=== PATIENT | male | born 1950 | race American Indian/Alaskan Native ===

== ENCOUNTER 2016-08-14 10:09 | Emergency (ER) | payer MEDICARE ==
[2016-08-14 10:58] LABS: Basophils % (Auto) 0.4 % (0.0-1.8); Eosinophils % (Auto) 1.9 % (0.0-4.3); Hematocrit 40.9 % (35.5-45.6); Hemoglobin 13.3 gm/dl (11.8-15.2); Mean Corpuscular HGB Conc 33 % (32-34); Mean Corpuscular Volume 75 fl (84-94); Platelet Count 242 K/mm3 (140-440); Red Blood Count 5.45 M/mm3 (3.65-5.03); Red Cell Distribution Width 13.4 % (13.2-15.2); White Blood Count 10.2 K/mm3 (4.5-11.0)
[2016-08-14 11:03] LABS: Mean Corpuscular Hemoglobin 25 pg (28-32)
[2016-08-14 11:07] LABS: INR 0.97 (0.87-1.13)
[2016-08-14 13:18] LABS: Alanine Aminotransferase 14 units/L (7-56); Albumin 4.4 g/dL (3.9-5); Albumin/Globulin Ratio 1.5 %; Alkaline Phosphatase 97 units/L (35-129); Anion Gap 20 mmol/L; BUN/Creatinine Ratio 12.85; Bilirubin,Total 0.5 mg/dL (0.1-1.2); Blood Urea Nitrogen 18 mg/dL (9-20); Calcium 9.5 mg/dL (8.4-10.2); Carbon Dioxide 22 mmol/L (22-30); Chloride 105.8 mmol/L (98-107); Glucose 90 mg/dL (75-100); Potassium 4.3 mmol/L (3.6-5.0); Sodium 143 mmol/L (137-145); Total Protein 7.4 g/dL (6.3-8.2)
--- NOTE | 2016-08-14 18:30 | Emergency Department Report ---
ED Seizure HPI - General Chief Complaint: Seizure Stated Complaint: SEIZURE Time Seen by Provider: 08/14/16 18:25 Source: family Mode of arrival: Ambulatory Limitations: Other - History of Present Illness Initial Comments: This is a pleasant 66-year-old gentleman with moderate dementia. He was at his daycare facility today when he had full body seizure that lasted less than 1 minute. He had a brief postictal phase. He did not have loss of bowel or bladder activity. And then return back to his baseline. His sister who is his primary caregiver was in private apprised of his condition and she brought him into the ED for evaluation. There was no injury with the seizure. He was on a couch at the time. Patient indicates that he has been compliant on his Keppra. He feels at his baseline now. He states he's been feeling well in general today. He did have a seizure last approximately 1 year ago. Description of Episode: loss of consciousness, tonic-clonic movement Seizure History: known seizure disorder - Related Data Home Medications Medication Instructions Recorded Confirmed Last Taken Carvedilol [Coreg] 12.5 mg PO DAILY 10/27/14 10/27/14 10/26/14 12.5 MG Clopidogrel [Plavix] 75 mg PO DAILY 10/27/14 10/27/14 10/26/14 75 MG Donepezil HCl 5 mg PO DAILY 10/27/14 10/27/14 10/26/14 5 MG Lisinopril/Hydrochlorothiazide 20 - 25 mg PO DAILY 10/27/14 10/27/14 10/27/14 [Zestoretic 20-25 mg] Pantoprazole Sodium [Protonix] 40 mg PO DAILY 10/27/14 10/27/14 10/27/14 Pravastatin (Nf) [Pravachol] 40 mg PO DAILY 10/27/14 10/27/14 10/27/14 40 MG Tramadol HCl [traMADol] 50 mg PO PRN PRN 10/27/14 10/27/14 10/26/14 50 MG levETIRAcetam [Keppra TAB] 500 mg PO TID 10/27/14 10/27/14 10/27/14 500 MG Allergies Allergy/AdvReac Type Severity Reaction Status Date / Time No Known Allergies Allergy Unverified 10/27/14 18:47 ED Review of Systems ROS: Stated complaint: SEIZURE Other details as noted in HPI Comment: All other systems reviewed and negative Constitutional: denies: chills, fever Eyes: denies: eye pain, eye discharge, vision change ENT: denies: ear pain, throat pain Respiratory: denies: cough, shortness of breath, wheezing Cardiovascular: denies: chest pain, palpitations Endocrine: no symptoms reported Gastrointestinal: denies: abdominal pain, nausea, diarrhea Genitourinary: denies: urgency, dysuria Musculoskeletal: denies: back pain, joint swelling, arthralgia Skin: denies: rash, lesions Neurological: denies: headache, weakness, paresthesias Psychiatric: denies: anxiety, depression Hematological/Lymphatic: denies: easy bleeding, easy bruising ED Past Medical Hx - Past Medical History Previous Medical History?: Yes Hx Hypertension: Yes Hx CVA: Yes (3 STROKES TOTAL) Hx Dementia: Yes Additional medical history: high cholesterol - Surgical History Past Surgical History?: No - Social History Smoking Status: Current Every Day Smoker Substance Use Type: None - Medications Home Medications: Home Medications Medication Instructions Recorded Confirmed Last Taken Type Carvedilol [Coreg] 12.5 mg PO DAILY 10/27/14 10/27/14 10/26/14 History 12.5 MG Clopidogrel [Plavix] 75 mg PO DAILY 10/27/14 10/27/14 10/26/14 History 75 MG Donepezil HCl 5 mg PO DAILY 10/27/14 10/27/14 10/26/14 History 5 MG Lisinopril/Hydrochlorothiazide 20 - 25 mg PO DAILY 10/27/14 10/27/14 10/27/14 History [Zestoretic 20-25 mg] Pantoprazole Sodium [Protonix] 40 mg PO DAILY 10/27/14 10/27/14 10/27/14 History Pravastatin (Nf) [Pravachol] 40 mg PO DAILY 10/27/14 10/27/14 10/27/14 History 40 MG Tramadol HCl [traMADol] 50 mg PO PRN PRN 10/27/14 10/27/14 10/26/14 History 50 MG levETIRAcetam [Keppra TAB] 500 mg PO TID 10/27/14 10/27/14 10/27/14 History 500 MG ED Physical Exam - General Limitations: No Limitations, Other (dementia but a fairly good historian) General appearance: alert, in no apparent distress - Head Head exam: Present: atraumatic, normocephalic - Eye Eye exam: Present: normal appearance, EOMI. Absent: scleral icterus - ENT ENT exam: Present: normal exam, normal orophraynx, mucous membranes moist - Neck Neck exam: Present: normal inspection - Respiratory Respiratory exam: Present: normal lung sounds bilaterally. Absent: respiratory distress, wheezes, rales - Cardiovascular Cardiovascular Exam: Present: normal rhythm, bradycardia. Absent: systolic murmur, diastolic murmur, rubs, gallop - GI/Abdominal GI/Abdominal exam: Present: soft, normal bowel sounds. Absent: tenderness, guarding - Rectal Rectal exam: Present: deferred - Extremities Exam Extremities exam: Present: normal inspection - Back Exam Back exam: Present: normal inspection. Absent: tenderness, CVA tenderness (R), CVA tenderness (L) - Neurological Exam Neurological exam: Present: alert, oriented X3 - Psychiatric Psychiatric exam: Present: normal affect, normal mood - Skin Skin exam: Present: warm, dry, intact, normal color. Absent: rash ED Course Vital Signs 08/14/16 08/14/16 08/14/16 10:26 17:22 17:31 Temperature 98.5 F Pulse Rate 46 L 46 L 51 L Respiratory 16 27 H 14 Rate Blood Pressure 124/80 144/84 O2 Sat by Pulse 100 84 Oximetry 08/14/16 18:45 Temperature Pulse Rate Respiratory 14 Rate Blood Pressure O2 Sat by Pulse 84 Oximetry - Reevaluation(s) Reevaluation #1: 08/14/16 18:26 ECG at 1018 with sinus bradycardia at 48 bpm with normal WI and QRS. Left axis is noted. Nonspecific T wave abnormalities are noted no acute ST segment elevation or depression is appreciated. Reevaluation #2: 08/14/16 22:54 Patient is pleasant and appropriate here. Neurologically is intact. He is answering questions quite well in general to me. He is not a good historian is for recent remote events. But he is a good historian for his current condition and refills today. Labs are noted they are unremarkable in general. I do not see any untoward findings on his determination. He is noted be mildly bradycardic. He is asymptomatic with this. Still inclined to hold his beta manuela due to this low heart rate. He is already on another medication blood pressure and has a normotensive blood pressure here. I did caution regarding rebound tachycardia. He is on a fairly low dose of carvedilol and I hope this will obviously significant problem for him. I did encourage him to continue with his Keppra. He is agreeable with this. His sister will help with his medications as well. His sister will be with him tonight. ED Medical Decision Making - Lab Data Result diagrams: 08/14/16 10:44 08/14/16 10:44 Critical care attestation.: If time is entered above; I have spent that time in minutes in the direct care of this critically ill patient, excluding procedure time. ED Disposition Clinical Impression: Seizure, Bradycardia, Dysphagia as late effect of stroke Disposition: DISCHARGED TO HOME OR SELFCARE Is pt being admited?: No Does the pt Need Aspirin: No Condition: Stable Instructions: Epilepsy (ED) Additional Instructions: Stop your coreg. Check your BP daily to assure it isn't getting too high. Continue on your Keppra for seizures. Stop smoking. Consider following with your doctor regarding a swallow study. Take care when eating to assure swallowing food properly. Referrals: PRIMARY CARE, [Primary Care Provider] - 3-5 Days Time of Disposition: 18:56
[2016-08-14 18:59] VITALS: BP 122/71
== END 2016-08-14 19:08 | disposition home or self-care (01) ==
LOC: ED 10:09
DX: G40.909 Epilepsy, unspecified, not intractable, without status epilepticus (principal); R00.1 Bradycardia, unspecified; R13.10 Dysphagia, unspecified; I10 Essential (primary) hypertension; F03.90 Unspecified dementia, unspecified severity, without behavioral disturbance, psychotic disturbance, mood disturbance, and anxiety; E78.00 Pure hypercholesterolemia, unspecified; F17.200 Nicotine dependence, unspecified, uncomplicated; Z86.73 Personal history of transient ischemic attack (TIA), and cerebral infarction without residual deficits
CPT/HCPCS: 36415; 80053; 80177; 82962; 85025; 85610; 85730; 93005; 93010

== ENCOUNTER 2016-08-20 10:40 | Emergency (ER) | payer MEDICARE ==
--- NOTE | 2016-08-20 11:39 | Emergency Department Report ---
- General Chief complaint: Weakness Stated complaint: CHEST PAIN/SLURRED SPEACH Time Seen by Provider: 08/20/16 11:17 Source: patient Mode of arrival: Ambulatory Limitations: No Limitations - History of Present Illness MD Complaint: generalized weakness Onset/Timin -: Gradual, hour(s) Location: generalized Severity: mild Consistency: now resolved (lasted 10 minutes after getting out of the shower, ) Worsens with: none Associated Symptoms: denies: chest pain, confusion, dark stools, diaphoresis, dysuria, easy bruising, fever/chills, headaches, loss of appetite, nausea/ vomiting, myalgias, rash, shortness of breath, syncope - Related Data Home Medications Medication Instructions Recorded Confirmed Last Taken Carvedilol [Coreg] 12.5 mg PO DAILY 10/27/14 10/27/14 10/26/14 12.5 MG Clopidogrel [Plavix] 75 mg PO DAILY 10/27/14 10/27/14 10/26/14 75 MG Donepezil HCl 5 mg PO DAILY 10/27/14 10/27/14 10/26/14 5 MG Lisinopril/Hydrochlorothiazide 20 - 25 mg PO DAILY 10/27/14 10/27/14 10/27/14 [Zestoretic 20-25 mg] Pantoprazole Sodium [Protonix] 40 mg PO DAILY 10/27/14 10/27/14 10/27/14 Pravastatin (Nf) [Pravachol] 40 mg PO DAILY 10/27/14 10/27/14 10/27/14 40 MG Tramadol HCl [traMADol] 50 mg PO PRN PRN 10/27/14 10/27/14 10/26/14 50 MG levETIRAcetam [Keppra TAB] 500 mg PO TID 10/27/14 10/27/14 10/27/14 500 MG Allergies Allergy/AdvReac Type Severity Reaction Status Date / Time No Known Allergies Allergy Unverified 10/27/14 18:47 ED Review of Systems ROS: Stated complaint: CHEST PAIN/SLURRED SPEACH Other details as noted in HPI Constitutional: denies: chills, fever Eyes: denies: eye pain, eye discharge, vision change ENT: denies: ear pain, throat pain Respiratory: denies: cough, shortness of breath, wheezing Cardiovascular: denies: chest pain, palpitations Endocrine: no symptoms reported Gastrointestinal: denies: abdominal pain, nausea, diarrhea Genitourinary: denies: urgency, dysuria Musculoskeletal: denies: back pain, joint swelling, arthralgia Skin: denies: rash, lesions Neurological: denies: headache, weakness, paresthesias Psychiatric: denies: anxiety, depression Hematological/Lymphatic: denies: easy bleeding, easy bruising ED Past Medical Hx - Past Medical History Previous Medical History?: Yes Hx Hypertension: Yes Hx CVA: Yes (3 STROKES TOTAL) Hx Dementia: Yes Additional medical history: high cholesterol - Surgical History Past Surgical History?: No - Social History Smoking Status: Never Smoker Substance Use Type: None - Medications Home Medications: Home Medications Medication Instructions Recorded Confirmed Last Taken Type Carvedilol [Coreg] 12.5 mg PO DAILY 10/27/14 10/27/14 10/26/14 History 12.5 MG Clopidogrel [Plavix] 75 mg PO DAILY 10/27/14 10/27/14 10/26/14 History 75 MG Donepezil HCl 5 mg PO DAILY 10/27/14 10/27/14 10/26/14 History 5 MG Lisinopril/Hydrochlorothiazide 20 - 25 mg PO DAILY 10/27/14 10/27/14 10/27/14 History [Zestoretic 20-25 mg] Pantoprazole Sodium [Protonix] 40 mg PO DAILY 10/27/14 10/27/14 10/27/14 History Pravastatin (Nf) [Pravachol] 40 mg PO DAILY 10/27/14 10/27/14 10/27/14 History 40 MG Tramadol HCl [traMADol] 50 mg PO PRN PRN 10/27/14 10/27/14 10/26/14 History 50 MG levETIRAcetam [Keppra TAB] 500 mg PO TID 10/27/14 10/27/14 10/27/14 History 500 MG ED Physical Exam - General Limitations: No Limitations General appearance: alert, in no apparent distress - Head Head exam: Present: atraumatic, normocephalic - Eye Eye exam: Present: normal appearance, PERRL, EOMI Pupils: Present: normal accommodation - ENT ENT exam: Present: normal exam, mucous membranes moist - Neck Neck exam: Present: normal inspection - Respiratory Respiratory exam: Present: normal lung sounds bilaterally. Absent: respiratory distress - Cardiovascular Cardiovascular Exam: Present: regular rate, normal rhythm. Absent: systolic murmur, diastolic murmur, rubs, gallop - GI/Abdominal GI/Abdominal exam: Present: soft, normal bowel sounds - Rectal Rectal exam: Present: deferred - Extremities Exam Extremities exam: Present: normal inspection, full ROM - Back Exam Back exam: Present: normal inspection - Neurological Exam Neurological exam: Present: alert, oriented X3 - Expanded Neurological Exam Expanded Neurological exam: Present: memory loss-recent event. Absent: ataxia, receptive aphasia, expressive aphasia, total aphasia, tremor Speech: Present: fluid speech Cranial nerves: EOM's Intact: Normal, Gag Reflex: Normal, Tongue Deviation: Normal, Nystagmus: Normal, Facial Sensation: Normal Cerebellar function: Finger to Nose: Normal, Romberg: Normal Sensory exam: Upper Extremity Light Touch: Normal, Upper Extremity Pin Prick: Normal, Upper Extremity Temperature: Normal, UE 2 Point Discrimination: Normal, Lower Extremity Light Touch: Normal, Lower Extremity Pin Prick: Normal Motor strength exam: RUE: 5, LUE: 5, RLE: 5, LLE: 5 DTR: bicep (R): 2+, bicep (L): 2+, tricep (R): 2+, tricep (L): 2+, knee (R): 2+ , knee (L): 2+ Best Eye Response (Unruly): (4) open spontaneously Best Motor Response (Unruly): (6) obeys commands Best Verbal Response ([place]): (5) oriented [place] Total: 15 - Psychiatric Psychiatric exam: Present: normal affect, normal mood - Skin Skin exam: Present: warm, dry, intact, normal color. Absent: rash ED Course Vital Signs 08/20/16 08/20/16 10:44 11:10 Temperature 98.5 F 98.7 F Pulse Rate 89 72 Respiratory 16 16 Rate Blood Pressure 159/99 Blood Pressure 139/72 [Left] O2 Sat by Pulse 100 100 Oximetry ED Medical Decision Making - Lab Data Result diagrams: 08/20/16 11:45 - EKG Data -: EKG Interpreted by [place] EKG shows normal: sinus rhythm - EKG Data When compared to previous EKG there are: no significant change - Radiology Data Radiology results: report reviewed - Medical Decision Making Patient doing well during his ER stay, remined asymptomatic , head CT with no new changes , possibility for TIA, already on Plavix, has a follow up appointment on Sunday with PCP, viktor stapleton and let him follow up with him. Critical care attestation.: If time is entered above; I have spent that time in minutes in the direct care of this critically ill patient, excluding procedure time. ED Disposition Clinical Impression: TIA (transient ischemic attack) Disposition: DISCHARGED TO HOME OR SELFCARE Is pt being admited?: No Does the pt Need Aspirin: No Condition: Good Instructions: Transient Ischemic Attack (ED) Referrals: PRIMARY CARE, [Primary Care Provider] - 3-5 Days Time of Disposition: 12:54
[2016-08-20 12:10] LABS: Basophils % (Auto) 0.7 % (0.0-1.8); Eosinophils % (Auto) 6.5 % (0.0-4.3); Hematocrit 42.8 % (35.5-45.6); Hemoglobin 13.8 gm/dl (11.8-15.2); Mean Corpuscular HGB Conc 32 % (32-34); Mean Corpuscular Volume 76 fl (84-94); Platelet Count 247 K/mm3 (140-440); Red Blood Count 5.62 M/mm3 (3.65-5.03); Red Cell Distribution Width 13.4 % (13.2-15.2); White Blood Count 7.8 K/mm3 (4.5-11.0)
[2016-08-20 12:16] LABS: Mean Corpuscular Hemoglobin 25 pg (28-32)
[2016-08-20 12:19] LABS: INR 1.01 (0.87-1.13)
[2016-08-20 12:20] LABS: Partial Thromboplastin Time 30.9 Sec. (24.2-36.6)
[2016-08-20 12:22] LABS: Creatine Kinase MB 1.8 ng/mL (0.0-4.0)
[2016-08-20 12:23] LABS: Creatine Kinase 150 units/L (55-170)
--- NOTE | 2016-08-20 12:35 | XRay Report ---
AP CHEST: HISTORY: Cough AP view of the chest demonstrates a normal mediastinal and cardiac contour with clear lungs and normal bony and soft tissue structures. IMPRESSION: Unremarkable AP chest.
--- NOTE | 2016-08-20 12:40 | Cat Scan Report ---
CT HEAD WITHOUT CONTRAST: HISTORY: CVA. TECHNIQUE: Sequential CT images without contrast. FINDINGS: Images obtained show bilateral prominence of the sulci and ventricles. There are no abnormal intra- or extra-axial blood or fluid collections. There are no focal masses or evidence of mass effect. The krause white matter differentiation appears within normal limits. Regions of periventricular decreased attenuation are consistent with microangiopathic ischemic disease. Chronic focal infarcts are noted in the basal ganglia and bilateral cerebellar hemispheres. IMPRESSION: Evidence of atrophy and microangiopathic ischemic disease. No acute intracranial process noted.
[2016-08-20 13:23] VITALS: BP 148/94
== END 2016-08-20 13:27 | disposition home or self-care (01) ==
LOC: ED 10:40
DX: G45.9 Transient cerebral ischemic attack, unspecified (principal); I10 Essential (primary) hypertension; F03.90 Unspecified dementia, unspecified severity, without behavioral disturbance, psychotic disturbance, mood disturbance, and anxiety; E78.00 Pure hypercholesterolemia, unspecified; Z86.73 Personal history of transient ischemic attack (TIA), and cerebral infarction without residual deficits
CPT/HCPCS: 36415; 70450; 71010; 82550; 82553; 82962; 84484; 85025; 85610; 85670; 85730; 93005; 93010